=== PATIENT | female | born 1950 | race Caucasian/White ===

== ENCOUNTER 2016-11-02 16:54 | Emergency (ER) | payer OTHER ==
[~2016-11-02] VITALS: Ht 157.5 cm; Wt 80.0 kg
[2016-11-02 16:58] VITALS: Ht 157.5 cm; Wt 80.0 kg
[2016-11-02] MEDS ORDERED: RANI150T9 PO (17:38)
--- NOTE | 2016-11-02 17:43 | ERD ---
ER Documentation Chief Complaint Date/Time DATE: 11/02/16 TIME: 17:41 Chief Complaint ACCIDENTALLY DRUNK A SIP OF CLORAX HPI This 66-year-old female presents because she is worried because she accidentally drank out of a bottle in her purse to contain household bleach. She is otherwise feeling well. Says she has mild abdominal discomfort described as a mild burning pain. She has no other symptoms. She was mostly just worried. This happened a couple hours ago. ROS All systems reviewed and are negative except as per history of present illness. Medications Home Meds Active Scripts Ranitidine Hcl* (Zantac*) 150 Mg Tablet, 150 MG PO BID Y for EPIGASTRIC PAIN, # 30 TAB Prov:MARSHA MARR DO 11/02/16 Physical Exam Vitals Vital Signs Date Time Temp Pulse Resp B/P Pulse Ox O2 Delivery O2 Flow Rate FiO2 11/02/16 16:58 98.1 69 18 160/89 99 Physical Exam Const: [] No distress ENT: Normal External Ears, Nose and Mouth. Oropharynx within normal limits with no erythema. Moist mucous membranes of mouth.. Resp: Clear to auscultation bilaterally Abd: Soft, non tender, non distended. Normal bowel sounds Skin: No petechiae or rashes Procedures/MDM Accidental bleach ingestion. Patient took 1 drink of household bleach. Doing well the emergency room. Standing and smiling. No signs of damage to mucous membranes. Encourage the patient to drink a lot of water. We did discharge her with Zantac. Primary care follow-up and strict return precautions to ER if the mild discomfort turns into pain she has any other concerns. Departure Diagnosis: Primary Impression: Bleach ingestion Condition: Stable Patient Instructions: Abdominal Pain Referrals: [facility] YOU HAVE RECEIVED A MEDICAL SCREENING EXAM AND THE RESULTS INDICATE THAT YOU DO NOT HAVE A CONDITION THAT REQUIRES URGENT TREATMENT IN THE EMERGENCY DEPARTMENT. FURTHER EVALUATION AND TREATMENT OF YOUR CONDITION CAN WAIT UNTIL YOU ARE SEEN IN YOUR DOCTORS OFFICE WITHIN THE NEXT 1-2 DAYS. IT IS YOUR RESPONSIBILITY TO MAKE AN APPOINTMENT FOR FOLOW-UP CARE. IF YOU HAVE A PRIMARY DOCTOR --you should call your primary doctor and schedule an appointment IF YOU DO NOT HAVE A PRIMARY DOCTOR YOU CAN CALL OUR PHYSICIAN REFERRAL HOTLINE AT IF YOU CAN NOT AFFORD TO SEE A PHYSICIAN YOU CAN CHOSE FROM THE FOLLOWING [facility] [address] [facility] [address] [facility] [facility] [address] [facility] [address] [facility]. [facility] [address] [facility]. [facility] [address] Additional Instructions: Llame al doctor MAANA y zoe saroj RISHABH PARA DENTRO DE 1-2 GHOSH.Dgale a la secretaria que nosotros le instruimos hacer esta rishabh.Avise o llame si cabrera condicin se empeora antes de la rishabh. Regresa aqui si peor o no mejor. MARSHA MARR DO Nov 02, 2016 17:43
== END 2016-11-02 18:03 | disposition home or self-care (01) ==
LOC: FTE 16:54
DX: T54.3X1A Toxic effect of corrosive alkalis and alkali-like substances, accidental (unintentional), initial encounter (principal)
CPT/HCPCS: 99283